=== PATIENT | female | born 1945 | race Caucasian/White ===

== ENCOUNTER 2017-04-04 15:12 | Inpatient (IN) | payer OTHER ==
[~2017-04-04] VITALS: Ht 157.5 cm; Wt 59.9 kg
[~2017-04-04 15:12] MED LIST: CLON0.25 PO; LEVO88TA6 PO; LIOT25TA3 PO; PENT100C2 PO; TIOT18CA INH
[2017-04-04] MEDS ORDERED: FEXO60TA24 PO (15:52)
[2017-04-04] MEDS ORDERED: OMEP20TA62 PO (15:59)
[2017-04-04] MEDS ORDERED: FLUT1DIS5 IH (15:59)
[2017-04-04] MEDS ORDERED: LEVO88TA4 PO (15:59)
[2017-04-04] MEDS ORDERED: ALBU8.5H8 INH (15:59)
[2017-04-04] MEDS ORDERED: TIOT18CA INH (15:59)
[2017-04-04] MEDS ORDERED: ALBUTEROL/IPRATROPIUM 2.5MG/0.5MG, 3 ML ONE ×2 (16:18→18:25)
[2017-04-04] MEDS ORDERED: SODIUM CHLORIDE FLUSH 10ML SYR IVF ONE (16:30)
[2017-04-04] MEDS ORDERED: ALBUTEROL/IPRATROPIUM 2.5MG/0.5MG, 3 ML NPPB PRN (16:30)
[2017-04-04 16:33] LABS: HEMATOCRIT 40.9 % (34.6-47.8); HEMOGLOBIN 13.4 g/dL (11.7-16.4); WHITE BLOOD COUNT 8.7 x10^3/uL (3.4-10)
[2017-04-04 16:45] LABS: BLOOD UREA NITROGEN 8 mg/dL (7-18)
[2017-04-04 16:54] LABS: IS PT STATUS REG ER OR PRE ER? YES
[2017-04-04] MEDS ORDERED: ALBUTEROL/IPRATROPIUM 2.5MG/0.5MG, 3 ML NPPB ONE (17:00)
[2017-04-04] MEDS ORDERED: ONDANSETRON 2MG/ML, 2ML IVPush ONE (17:30)
[2017-04-04] MEDS ORDERED: MORPHINE SULFATE 4 MG/ML, 1ML IVPush PRN (17:30)
[2017-04-04] MEDS ORDERED: ONDANSETRON 2MG/ML, 2ML ONE (17:50)
[2017-04-04] MEDS ORDERED: MORPHINE SULFATE 4 MG/ML, 1ML ONE (17:50)
[2017-04-04] MEDS ORDERED: methylPREDNISolone SOD SUCC 125 MG/2 ML ONE (18:14)
[2017-04-04] MEDS ORDERED: ACETAMINOPHEN 325 MG TABLET ONE (18:14)
[2017-04-04] MEDS ORDERED: methylPREDNISolone SOD SUCC 125 MG/2 ML IVPush SCH (18:30)
[2017-04-04] MEDS ORDERED: ACETAMINOPHEN 325 MG TABLET PO ONE (18:30)
[2017-04-04] MEDS ORDERED: ONDANSETRON ODT 4 MG PO PRN (20:00)
[2017-04-04] MEDS ORDERED: ENALAPRILAT 1.25 MG/ML, 2ML IVPush PRN (20:00)
[2017-04-04] MEDS ORDERED: DOCUSATE 100 MG CAPSULE PO PRN (20:00)
[2017-04-04] MEDS ORDERED: TEMAZEPAM 15 MG CAPSULE PO PRN (20:00)
[2017-04-04] MEDS ORDERED: ALBUTEROL SULFATE 2.5 MG/3 ML NPPB PRN (20:00)
[2017-04-04 21:35] VITALS: BP 152/81
[2017-04-04] MEDS: methylPREDNISolone SOD SUCC 40 MG/ML IVPush SCH (22:05)
[2017-04-04] MEDS: ENOXAPARIN 40 MG/0.4 ML SQ SCH (22:06)
[2017-04-05 03:06] VITALS: BP 112/62
[2017-04-05] MEDS: ACETAMINOPHEN 325 MG TABLET PO PRN ×2 (03:28→16:12)
[2017-04-05] MEDS: methylPREDNISolone SOD SUCC 40 MG/ML IVPush SCH ×4 (03:56→22:48)
[2017-04-05 05:13] LABS: HEMATOCRIT 37.6 % (34.6-47.8); HEMOGLOBIN 12.3 g/dL (11.7-16.4); WHITE BLOOD COUNT 6.3 x10^3/uL (3.4-10)
[2017-04-05 05:20] LABS: BLOOD UREA NITROGEN 15 mg/dL (7-18)
[2017-04-05] MEDS: LEVOTHYROXINE 88 MCG TABLET PO SCH ×2 (06:08→08:38)
[2017-04-05] MEDS ORDERED: ALBUTEROL/IPRATROPIUM 2.5MG/0.5MG, 3 ML ONE (07:01)
[2017-04-05 07:24] VITALS: BP 124/69
[2017-04-05] MEDS: LIOTHYRONINE 25 MCG TABLET PO SCH (08:39)
[2017-04-05] MEDS: OMEPRAZOLE 20 MG CAPSULE.DR PO SCH (08:40)
[2017-04-05] MEDS: CETIRIZINE 10 MG TABLET PO SCH (08:40)
[2017-04-05] MEDS ORDERED: FLUTICASONE/VILANTEROL 200-25MCG/INH INH SCH (09:00)
[2017-04-05] MEDS ORDERED: LEVOTHYROXINE 88 MCG TABLET PO SCH (09:00)
[2017-04-05] MEDS ORDERED: IPRATROPIUM 0.5 MG/2.5 ML INHA NPPB SCH (09:00)
[2017-04-05] MEDS: SYMBICORT INH SCH ×2 (09:53→22:24)
[2017-04-05] MEDS: ALBUTEROL/IPRATROPIUM 2.5MG/0.5MG, 3 ML NPPB SCH ×3 (10:25→19:46)
[2017-04-05 13:53] VITALS: BP 107/63
[2017-04-05 20:00] VITALS: BP 111/71
[2017-04-05] MEDS: ENOXAPARIN 40 MG/0.4 ML SQ SCH (22:25)
[2017-04-06 04:09] VITALS: BP 97/60
[2017-04-06] MEDS: methylPREDNISolone SOD SUCC 40 MG/ML IVPush SCH ×2 (04:10→10:00)
[2017-04-06 05:41] LABS: BLOOD UREA NITROGEN 15 mg/dL (7-18)
[2017-04-06 05:44] LABS: HEMATOCRIT 38.1 % (34.6-47.8); HEMOGLOBIN 12.4 g/dL (11.7-16.4); WHITE BLOOD COUNT 15.2 x10^3/uL (3.4-10)
[2017-04-06] MEDS: ACETAMINOPHEN 325 MG TABLET PO PRN (06:24)
[2017-04-06] MEDS: LEVOTHYROXINE 88 MCG TABLET PO SCH ×2 (06:44→08:35)
[2017-04-06 06:52] VITALS: BP 111/69
[2017-04-06] MEDS: OMEPRAZOLE 20 MG CAPSULE.DR PO SCH (08:35)
[2017-04-06] MEDS: LIOTHYRONINE 25 MCG TABLET PO SCH (08:35)
[2017-04-06] MEDS: CETIRIZINE 10 MG TABLET PO SCH (08:35)
[2017-04-06] MEDS: SYMBICORT INH SCH (08:36)
[2017-04-06] MEDS: ALBUTEROL/IPRATROPIUM 2.5MG/0.5MG, 3 ML NPPB SCH ×2 (10:07→15:35)
[2017-04-06 12:28] VITALS: BP 136/70
[2017-04-06] MEDS ORDERED: IPRA3AMP NPPB (16:05)
[2017-04-06] MEDS ORDERED: PRED20TA PO (16:05)
== END 2017-04-06 17:00 | disposition home or self-care (01) | DRG 189 ==
LOC: ED 18:30 → EDIP 18:45 → 4NOR 20:43 → 4EST 04-05 17:25 → DCLOUNGE 04-06 16:50
PROVIDERS: ADMIT Hospitalist; ATTEND Internal Medicine
DX: J96.01 Acute respiratory failure with hypoxia (principal); D68.59 Other primary thrombophilia; J44.1 Chronic obstructive pulmonary disease with (acute) exacerbation; J45.31 Mild persistent asthma with (acute) exacerbation; R73.9 Hyperglycemia, unspecified; D16.9 Benign neoplasm of bone and articular cartilage, unspecified; E89.0 Postprocedural hypothyroidism; T38.0X5A Adverse effect of glucocorticoids and synthetic analogues, initial encounter; Z80.3 Family history of malignant neoplasm of breast; Z80.41 Family history of malignant neoplasm of ovary; Z82.49 Family history of ischemic heart disease and other diseases of the circulatory system; Z87.891 Personal history of nicotine dependence; Z81.8 Family history of other mental and behavioral disorders; Z90.89 Acquired absence of other organs
CPT/HCPCS: 36415; 70450; 71010; 80048; 82040; 83605; 83735; 84100; 84439; 84443; 84484; 85025; 93005; 94640; 96374; J1650; J7620; J2920; J2930; J7512

== ENCOUNTER → 2018-04-13 | Outpatient (CLI) | payer OTHER ==
[~2018-04-13] MED LIST changes: +ALBU8.5H8 INH; +FEXO60TA24 PO; +FLUT1DIS5 IH; +IPRA3AMP30 NPPB; +LEVO88TA4 PO; +OMEP20TA62 PO; +PRED20TA PO
== END | disposition home or self-care (01) ==
LOC: CFH 13:38
PROVIDERS: ATTEND Nurse Practitioner Family
DX: Z12.31 Encounter for screening mammogram for malignant neoplasm of breast (principal)
CPT/HCPCS: 77067